=== PATIENT | male | born 1995 | race Caucasian/White ===

== ENCOUNTER 2025-02-25 16:50 | Emergency (ER) | payer MEDICAID, OTHER ==
[~2025-02-25] VITALS: Ht 182.9 cm; Wt 68.2 kg
[2025-02-25 17:01] VITALS: BP 103/68; PULSE 108; RESP 18; TEMP 98; O2SAT 99
[2025-02-25] MEDS ORDERED: QUET25TA PO (17:01)
== END 2025-02-25 20:48 | disposition left against medical advice (07) ==
LOC: EMS 16:50
DX: R10.9 Unspecified abdominal pain (principal); M25.561 Pain in right knee; Z53.21 Procedure and treatment not carried out due to patient leaving prior to being seen by health care provider
CPT/HCPCS: 99281; Z7502